=== PATIENT | female | born 1950 | race Caucasian/White ===

== ENCOUNTER → 2016-10-31 | Outpatient (CLI) | payer MEDICARE ==
[~2016-10-31] MED LIST: ATOR20TA42 PO; BRIM0.2S4 EACH EYE; CALC500C2 CHEW; ESTR.625 PO; HYDR12.56 PO; LATA0.002 EACH EYE; PREM0.45 PO; SYNT25TA PO; TELM40 PO; TELM5TAB PO
[2016-10-31 11:43] LABS: AUTOMATED NEUTROPHIL # 4.3 TH/MM3 (1.8-7.7); BASOPHIL # 0.1 TH/MM3 (0-0.2); BASOPHIL % 0.8 % (0.0-2.0); EOSINOPHIL # 0.1 TH/MM3 (0-0.4); EOSINOPHIL % 1.2 % (0.0-4.0); HEMATOCRIT 40.6 % (35.0-46.0); HEMO FLAGS DIFF FINAL; LYMPH % 27.6 % (9.0-44.0); LYMPHOCYTE # 1.8 TH/MM3 (1.0-4.8); MEAN CELL VOLUME 93.3 FL (80.0-100.0); MEAN CORPUSCULAR HEMOGLOBIN 31.9 PG (27.0-34.0); MEAN CORPUSCULAR HGB CONC 34.2 % (32.0-36.0); MONO % 6.3 % (0.0-8.0); NEUT % 64.1 % (16.0-70.0); PLATELET COUNT 218 TH/MM3 (150-450); RED BLOOD COUNT 4.36 MIL/MM3 (4.00-5.30); RED CELL DISTRIBUTION WIDTH 12.6 % (11.6-17.2); WHITE BLOOD COUNT 6.6 TH/MM3 (4.0-11.0)
[2016-10-31 12:08] LABS: BACTERIA, URINE RARE /hpf; BLOOD, URINE NEG (NEG); GLUCOSE,URINE NEG (NEG); KETONE, URINE NEG (NEG); NITRITE,URINE NEG (NEG); PH, URINE 6.5 (5.0-8.5); SQUAMOUS EPITHELIAL CELL URINE <1 /hpf (0-5); URINE COLOR YELLOW (YELLW/STRAW)
[2016-10-31 12:16] LABS: BICARBONATE 31.1 MEQ/L (21.0-32.0); POTASSIUM 4.1 MEQ/L (3.5-5.1)
== END ==
LOC: CPRE 10:28
PROVIDERS: ATTEND Obstetrics & Gynecology
DX: Z01.812 Encounter for preprocedural laboratory examination (principal); N81.11 Cystocele, midline; N81.6 Rectocele
CPT/HCPCS: 36415; 80048; 81001; 85025

== ENCOUNTER → 2016-11-08 | Day surgery (SDC) | payer MEDICARE ==
[~2016-11-08] VITALS: Ht 154.9 cm; Wt 62.8 kg
[~2016-11-08] MED LIST changes: +*morphine SULFATE 8 MG/ML PERIprocedure ONLY ONE; +ACETAMINOPHEN 1000 MG/100 ML VIAL IV ONE; -ATOR20TA42 PO; +BUPIVACAINE/EPINEPHRINE 0.5% PF 10 ML VIAL ONE; +BUPIVACAINE/EPINEPHRINE 0.5% PF 30 ML VIAL ONE; +CHLORHEXIDINE GLUCONATE 2 % 1 PACK (2 CLOTHS) TOPICAL PRN; +DO NOT ADM ANY ANTICOAGULANT DRUGS PRN; +DOCUSATE SODIUM 100 MG CAP PO SCH; +ESTROGENS CONJUGATED VAG CREA 15 APPL/30 GM TUBE ONE; +FAMOTIDINE 20 MG/2 ML VIAL ONE; +GENTAMICIN SULFATE 80 MG/2 ML VIAL ONE; -HYDR12.56 PO; +HYDROmorphone HCL PF 1 MG/ML VIAL IVP PRN; +IBUPROFEN 600 MG TAB PO PRN; +INSULIN HUMAN REGULAR 1,000 UNITS/10 ML VIAL SQ PRN; +KETOROLAC TROMETHAMINE 30 MG/ML (IVP) VIAL IVP PRN; +KETOROLAC TROMETHAMINE 60 MG/2 ML (IM) VIAL IM ONE; +LACTATED RINGER'S 1000 ML INJ 1,000 ML IV ONE; +LACTATED RINGER'S 1000 ML INJ 1,000 ML IV SCH; +LACTATED RINGER'S 1000 ML IV PRN; +METOPROLOL TARTRATE 25 MG TAB PO PRN; +MIDAZOLAM HCL 2 MG/2 ML VIAL ONE; +NEOSTIGMINE 3 MG/3 ML SYR IV ONE; +ONDANSETRON HCL 4 MG/2 ML VIAL IV PUSH ONE; +ONDANSETRON HCL 4 MG/2 ML VIAL IVP PRN; -PREM0.45 PO; +PROMETHAZINE INJ 25 MG/ML VIAL ONE; +PROPOFOL 200 MG/20 ML AMP IV ONE; +SODIUM CHLORID 0.9% 500 ML IV PRN; +SODIUM CHLORIDE 0.9% FLUSH 10 ML FLUSH IV FLUSH PRN; +SODIUM CHLORIDE 0.9% FLUSH 10 ML FLUSH IV FLUSH SCH; -SYNT25TA PO; -TELM40 PO; +ceFAZolin 2 GM PREMIX 50 ML IV SCH; +diphenhydrAMINE HCL 25 MG CAP PO PRN; +ePHEDrine/NS 25 MG/5 ML SYR IV ONE; +fentaNYL CITRATE 250 MCG/5 ML AMP ONE; +oxyCODONE/ACETAMINOPHEN 5 MG/325 MG TAB PO PRN
[2016-11-08 06:24] VITALS: BP 151/71; PULSE 74; RESP 16; TEMP 97.8; O2SAT 99
[2016-11-08 14:00] VITALS: BP 167/68; PULSE 60; RESP 18; TEMP 98; O2SAT 98
--- NOTE | 2016-11-10 11:02 | MP ---
cc: MEGAN KIMBALL M.D., JAVIER M.D. DATE OF SURGERY: 11/08/2016 DATE OF : 1950 PREOPERATIVE DIAGNOSIS Symptomatic vaginal vault prolapse, large enterocele, cystocele, rectocele. POSTOPERATIVE DIAGNOSIS Symptomatic vaginal vault prolapse, large enterocele, cystocele, rectocele. SURGEON Dr. Kimball ANESTHESIA General endotracheal intubation. ESTIMATED BLOOD LOSS 50 ccs. DRAINS Bean to gravity. OPERATIVE FINDINGS The patient had complete vault prolapse with a stage II cystocele and a stage II rectocele. INDICATION FOR PROCEDURE Patient with symptomatic vault prolapse affecting her quality of life and daily activities, was counseled to her options and elected for anterior and posterior colporrhaphy, sacrospinous ligament fixation, cystourethroscopy. DESCRIPTION OF PROCEDURE The patient received Ancef 2 grams prophylactically. She underwent general anesthesia with endotracheal intubation. She was carefully positioned in dorsolithotomy position using candy-cane stirrups with sequentials placed on lower extremities for VTE prophylaxis. She was prepped and draped and a time-out was conducted and agreed by all present. Bean catheter was then inserted by sterile technique. Exam revealed findings consistent with the preop diagnosis. The procedure initiated by starting with the anterior compartment injecting the vaginal mucosa with 0.25% plain Marcaine, approximately 10 ccs in a linear fashion and then delineating the cystocele a linear incision was made through the vaginal mucosa allowing dissection to reduce the cystocele. The cystocele was reduced without complication using imbricating sutures of 2-0 Monocryl on a UR6 needle. Several layers were made and then the redundant vaginal mucosa was trimmed and the defect was closed with a running locking suture of 3-0 Vicryl. The vaginal vault was then examined again. The posterior dissection was conducted in the same fashion, injecting with 0.25% plain Marcaine and making a linear incision by sharp technique through the vaginal mucosa and reducing the rectocele. Dissection to the patient's right pelvis to identify the sacrospinous ligament was accomplished easily. The Capio needle grab driver with #1 Prolene was used x2 to secure the ligament and then passing through the apex of the vaginal vault and left untied until the posterior repair was complete. The posterior repair was completed in the same fashion using 2-0 Monocryl simple imbricating sutures and once this was complete the redundant vaginal mucosa was trimmed and closed with a running locking suture of 3-0 Vicryl. Good hemostasis was noted throughout, good closure reapproximation, there was significant compliance within the vaginal vault. The sacrospinous sutures were then tied sequentially with minimal traction allowing attachment of the vaginal apex up to the sacrospinous ligament. The sutures were tied for multiple of six knots and then the ends were trimmed. The vaginal vault was then irrigated. The Bean catheter was removed sterilely and then a 7 degree cystoscope was used to examine the urethra and the bladder which were intact demonstrating good patency of the ureteral orifices. At the completion of the case hemostasis was confirmed. Premarin cream was applied to the suture closure both anterior and posterior and at that point the final count was correct. The patient was extubated, taken to the recovery room on room air. MD DIPESH Asencio/TLL /10:08 AM /10:43 AM
== END | disposition home or self-care (01) ==
LOC: HSDC 05:36
PROVIDERS: ATTEND Obstetrics & Gynecology
DX: N81.11 Cystocele, midline (principal); N81.6 Rectocele; I10 Essential (primary) hypertension; Z98.84 Bariatric surgery status; Z85.528 Personal history of other malignant neoplasm of kidney; Z79.899 Other long term (current) drug therapy
CPT/HCPCS: 00942; 52000; 57260; 57282; 86850; 86900; 86901; J0131; J0690; J1885; J2250; J2270; J2405; J2550; J2710; J3010; J7120; J1580